=== PATIENT | female | born 1935 | race Caucasian/White ===

== ENCOUNTER 2017-03-15 05:31 | Day surgery (SDC) | payer MEDICARE, OTHER ==
[~2017-03-15] VITALS: Ht 162.6 cm; Wt 65.8 kg
[2017-03-15] VITALS (11 sets, daily range): BP systolic 114–163; BP diastolic 56–92; PULSE 59–76; RESP 14–25; O2SAT 92–97
[~2017-03-15 05:31] MED LIST: ALBU8.5H2 INHALATION; ALEN70SO3 PO; ALEN70TA2 PO; ASPI-973 PO; CALC1TAB23 PO; CARV6.252 PO; CHOL10008 PO; LEVO50TA6 PO; LIP40 PO; LOSA25TA21 PO; METF500T4 PO; MULT-1018 PO; SYMINH INHALATION; TORS20TA3 PO
[2017-03-15] MEDS ORDERED: fentaNYL-PF 50 mCg/mL 2 mL Inj ONE (05:32)
[2017-03-15] MEDS ORDERED: Furosemide 10 mg/mL 4 mL Inj ONE (05:32)
[2017-03-15] MEDS ORDERED: EPHEDrine/NS 5 mg/mL 5 mL Syringe ONE (05:32)
[2017-03-15] MEDS: Lactated Ringer's 1,000 ML IV SCH ×3 (05:35→12:10)
[2017-03-15] MEDS: CeFAZolin 2 Gm/50 mL D5W IV Premix IV SCH ×2 (06:00→07:45)
[2017-03-15] MEDS ORDERED: Dextrose 10% 250 ML IV SCH (06:00)
[2017-03-15] MEDS: Phenazopyridine 97.5 mg Tablet PO SCH ×2 (06:00→06:57)
[2017-03-15] MEDS ORDERED: Phenylephrine 10,000 mCg/mL Inj IVPUSH PRN (08:10)
[2017-03-15] MEDS ORDERED: MetoCLOpramide 5 mg/mL 2 mL Inj IVPUSH PRN ×2 (08:10→11:15)
[2017-03-15] MEDS ORDERED: Lactated Ringer's 500 ML IV PRN (08:10)
[2017-03-15] MEDS ORDERED: Lactated Ringer's 1,000 ML IV SCH (08:10)
[2017-03-15] MEDS ORDERED: Atropine 0.4 mg/mL Inj IVPUSH PRN (08:10)
[2017-03-15] MEDS ORDERED: HYDROmorphone 1 mg/mL Inj IVPUSH PRN (08:10)
[2017-03-15] MEDS ORDERED: Labetalol 5 mg/mL 20 mL Inj IV PRN (08:10)
[2017-03-15] MEDS ORDERED: Dexamethasone 4 mg/mL Inj IVPUSH PRN (08:10)
[2017-03-15] MEDS ORDERED: Ondansetron 2 mg/mL 2 mL Inj IVPUSH PRN (08:10)
[2017-03-15] MEDS ORDERED: EPHEDrine Sulfate 50 mg/mL Inj IVPUSH PRN (08:10)
--- NOTE | 2017-03-15 08:10 | PCM.HPANE ---
Patient Data Surgeon Admitting Provider: Attending Provider:Demetris Travis MD Primary Care Physician:Nicholas Davila MD Other Provider:[facility] Reason for Visit Cystocele, Vault Prolapse Ht/WT & BMI Height (Feet): 5 Height (Inches): 4.00 Weight (Kilograms): 65.5 Body Mass Index 24.00 Allergies Coded Allergies: Sulfa (Sulfonamide Antibiotics) (Verified Allergy, Severe, anaphylaxis, ) sulfamethoxazole (Verified Allergy, Severe, anaphylaxis, 03/13/17) trimethoprim (Verified Allergy, Severe, anaphylaxis, 03/13/17) erythromycin base (Verified Allergy, Intermediate, Increased heart rate and confusion, 03/13/17) Past Anesthesia History Anesthesia History: Positive for:: Anesthesia Reactions (delayed recovery from anesthesic), Denies:: Abnormal Airway, Difficult Intubation, Fam Anesthesia Reaction, Fam Malignant Hypertherm, Malignant Hyperthermia Diabetes History Hx Diabetes?: Yes Type of Diabetes: Type II Glycemic Control: Oral Medication Current Bedside Blood Glucose: 102 MRSA MRSA: No Medications Blood Thinner: Aspirin Last Dose Blood Thinner: Mar 09, 2017 Home Meds Incl Beta Devonte: Yes (Carvedilol 6.25mg) Date Beta Devonte Taken: Mar 15, 2017 Time Beta Devonte Taken: 0400 Reported Medications Multivitamin (Multi Vitamin Daily)1 Each Tablet1 Each PO DAILY 30 Days Ref 0 03/13/17 Torsemide 20 Mg [id number] Mg PO DAILY 30 Days Ref 0 03/13/17 Metformin 500 Mg [id number] Mg PO BID Ref 0 03/13/17 Losartan Potassium 25 Mg Ivozft21 Mg PO 03/13/17 Levothyroxine 50 Mcg Bqlkid55 Mcg PO DAILY Ref 0 03/13/17 Cholecalciferol (Vitamin D3) (Vitamin D3)1,000 Unit Tab.chew1,000 Unit PO 03/13/17 Carvedilol 6.25 Mg Tablet6.25 Mg PO BID Ref 0 03/13/17 Calcium Carbonate/Vitamin D3 (Os-Benjy 500+D3 Caplet)500 Mg-600 Tablet1 Each PO 03/13/17 Budesonide/Formoterol 160-4.5 mcg Inh (Symbicort 160-4.5 mcg Inh)120 Puff Inhaler2 Puff INHALATION BID #1 INHALER Ref 0 03/13/17 Atorvastatin (Lipitor)40 Mg Becnmj29 Mg PO DAILY Ref 0 03/13/17 Aspirin 81 Mg Jtyjpn95 Mg PO DAILY Ref 0 03/13/17 Alendronate Sodium (Fosamax)70 Mg Hmwzwj98 Mg PO WEEKLY 30 Days Ref 0 03/13/17 Alendronate Oral Soln 70 Mg/75 Ml Ctkzahyk80 Mg PO WEEKLY Ref 0 03/13/17 Albuterol HFA (Proair HFA)8.5 Gm Hfa.aer.ad2 Puffs INHALATION Q4H #1 INHALER 03/13/17 History History of ENT Problems?: Yes HEENT History: Positive for:: Dysphagia (chokes with water sometimes) Hearing Problem Denies:: Abnormal Airway Cataracts Difficult Intubation Glaucoma Sinus Problem TMJ Denture Type: Full- Upper Partial- Lower Teeth Condition: Missing Teeth Hx of Heart Problems?: Yes Cardiovascular History: Positive for:: Cardiac Surgery (stents [facility] & 2006 [facility]) Congestive Heart Failure Coronary Artery Disease Hypertension Irregular Heartbeat Denies:: AICD Abdominal Aortic Aneurism Atrial Fibrillation Chest Pain Edema Heart Murmur Pacemaker Peripheral Vascular Rheumatic Fever Thrombophlebitis Valvular Heart Disease Hx of Respiratory Problem?: Yes Respiratory History: Positive for:: COPD (Moderatly severe obstructive deficts with sever reduc cap. per MD note) Use of Inhalers / NEBS (Symbacort, Albuterol as needed) Denies:: Asthma Chest Surgery Cough Dyspnea Emphysema Hemoptysis Oxygen Administration Pneumonia Pulmonary Embolism Tuberculosis Use of C-PAP Machine Hx Neurologic Problems?: No Neurological History: Denies:: Alzheimer's Disease CVA Dementia Dizziness Headaches Multiple Sclerosis Parkinson's Disease Peripheral Neuropathy Seizures TIA Hx of GI Problems?: No Gastrointestinal History: Denies:: Cirrhosis Diverticulitis Gall Bladder Disease Gastroesphageal Reflux Gastrointestinal Bleeding Heartburn Hepatitis Hiatal Hernia Liver Disease Rectal Bleeding Hx of Problems?: Yes Genitourinary History: Denies:: HX of Hemodialysis Kidney Stones Urinary Tract Infection HX of Peritoneal Dialysis: No Female Hx: Denies:: Currently Endometriosis Pelvic Inflammatory Problems with Breasts? Skin History: Denies:: History Skin Disorders? Pressure Ulcers Hx Musculoskeletal Problems?: Yes Musculoskeletal History: Positive for:: Back Injury (Low back micro dicectomy 2010 ) Osteoarthritis Denies:: Degenerative Joint Fibromyalgia Joint Replacement Musculoskeletal Trauma Myasthenia Gravis Rheumatoid Arthritis Systemic Lupus Hx of Psycho/Social Problems?: No Psycho Social History: Denies:: Anxiety Bipolar Disorder Hx Depression Suicide Attempt Hx Surgeries?: Yes Other History: Positive for:: Thyroid Disease (Hypothyroidism) Denies:: Cancer Endocrine Disease History Blood Transfusions: Positive for:: Accept Blood Products? Denies:: Blood Transfuse Reaction Blood Transfusions Hx Diabetes: YesBedside Blood Glucose: 102 Hx Alcohol Use: NoHx Substance Use: No Stop/Bang S-Snoring: Do You Snore Loudly: No T-Tired: feel tired, fatigued: No O-Obsered: Observed not breath: No P-Blood Pressure: treated: Yes B- Body Mass Index > 35 kg/m2: No A- Age over 50: Yes N- Neck Large Circumference: No G- Gender Male: No JOSHUA Total Score: 2 Risk Assessment Category Category 1A: Patient has history of documented sleep apnea, and HAS NOT received any narcotic, sedative or anesthesia administration during this stay. Category 1B: Patient has history of documented sleep apnea, and HAS received any narcotic , sedative or anesthesia administration during this stay Category 2: Patient has SUSPECTED Obstructive Sleep Apnea, and HAS received any narcotic , sedative or anesthesia administration during this stay. Category 3: Patient has SUSPECTED Obstructive Sleep Apnea and HAS NOT received narcotic, sedative or anesthesia administration during this stay. Category 4: Outpatient in Procedural Areas with known sleep apnea or who screen positive for High Risk via the STOP/BANG questionnaire. Exam Exam Vital Signs Vital Signs Date Time Temp Pulse Resp B/P Pulse Ox O2 Delivery O2 Flow Rate FiO2 03/15/17 06:07 35.9 64 16 120/67 97 Room Air General Appearance: Alert, Oriented X3, Cooperative, No Acute Distress HEENT/AIRWAY: MP 2, Neck Movement (FROM), Mouth Opening (3 FBMO) Lungs: Clear to Auscultation, Normal Air Movement Heart: Exam Unremarkable, Regular Rate/Rhythm, No Murmurs/Rubs/Gallops Meds/Labs/Diagnostics Admission Meds Current Medications Lactated Ringer's (Lr) 1,000 ml @ 120 mls/hr Q8H20M IV Last administered on 05:35; Start 03/15/17 at 05:00; Stop 03/15/17 at 13:19 Phenazopyridine HCl (Azo Standard) 2 tab PREOP PO Last administered on 06:57; Start 03/15/17 at 06:00; Stop 03/15/17 at 17:00 Bedside Blood Glucose: 102 Plan Impression Patient chart reviewed, patient interviewed and anesthestic plan with risks, benefits, and alternatives discussed, and informed consent obtained. NPO per Anesth. Guidelines: Yes ASA Physical Status: ASA2 Mod Systemic Disease Anesthetic Plan: SAB (patient requested spinal ) Bene/Risks/Altern/Consents: Yes HP Complete Prior to Induction: Yes Derik Chang MD Mar 15, 2017 07:21
[2017-03-15] MEDS ORDERED: Gentamicin 40 mg/mL 2 mL Inj IRRIGATION ONE ×2 (08:32→10:39)
[2017-03-15] MEDS ORDERED: Lidocaine 1%-Epi 1:100,000 20 mL Inj INJ ONE (08:51)
[2017-03-15] MEDS ORDERED: Sodium Chloride Bacteriostatic 30 mL Inj INJ ONE (08:52)
[2017-03-15] MEDS ORDERED: Estrogens Conjugated 30 Gm Vaginal Cream VAGINAL ONE (09:57)
[2017-03-15 10:03] LABS: APPEARANCE,URINE CLEAR (CLEAR,HAZY); COLOR,URINE YELLOW (YELLOW); OCCULT BLOOD,URINE TRACE (NEGATIVE); UROBILINOGEN,URINE NORMAL (NORMAL)
[2017-03-15] MEDS ORDERED: diphenhydrAMINE 25 mg Capsule PO PRN (11:15)
[2017-03-15] MEDS ORDERED: Alum-Mag Hydrox-Simeth 30 mL Suspension PO PRN (11:15)
[2017-03-15] MEDS: fentaNYL-PF 50 mCg/mL 2 mL Inj IVPUSH PRN ×2 (11:31→11:45)
[2017-03-15] MEDS: Ondansetron 2 mg/mL 2 mL Inj IVPUSH PRN ×2 (12:23→17:31)
--- NOTE | 2017-03-15 12:54 | NUR ---
Admit Patient admitted to room via gurney and transferred to bed independently. After transfer, patient became nauseous but this did resolve quickly. She was A&OX3, reported pain as "it's doing good.", was 93% on room air, hernandez catheter was draining, SCDs in place. While in bed, patient became incontinent of diarrhea and was assisted to the bathroom to sit on the toilet. Linen and gown changed and patient bathed. Upon getting back to bed, patient became nauseated once more and did have an episode of emesis. Zofran administered and patient is now resting in bed comfortably, IV fluids infusing, and son at bedside. Peripad replaced as it was soiled and patient now reports full sensation after spinal anesthesia.
--- NOTE | 2017-03-15 14:02 | PCM.ANEP1 ---
Post Anesthesia PACU Phase 1 Assessment Vital Signs Vital Signs Date Time Temp Pulse Resp B/P Pulse Ox O2 Delivery O2 Flow Rate FiO2 03/15/17 12:04 36.0 64 18 163/91 93 Room Air 03/15/17 11:32 59 15 135/64 96 Nasal Cannula 2 03/15/17 11:25 64 14 114/92 96 Nasal Cannula 2 03/15/17 11:20 62 14 141/70 96 Nasal Cannula 2 03/15/17 11:15 18 97 03/15/17 11:10 59 17 147/61 96 Nasal Cannula 2 03/15/17 11:06 36.4 63 25 155/70 93 Room Air 03/15/17 06:07 35.9 64 16 120/67 97 Room Air Anesthetic Administered: GA Level of Alertness: Awake, talking MCDONALD's with Equal Strength: Yes Pain: No Nausea or Vomiting: No CV Function & Hydration Stable: Yes Airway Device: n/a Oxygen Delivery: Room Air Lungs: Clear to Auscultation, Normal Air Movement Dermatome Level: Full Sensation PACU Phase 2 Assessment Complications: No Follow up Care: N/A Patient Instructions Provided: N/A Derik Chang MD Mar 15, 2017 14:02
[2017-03-15] MEDS: Insulin Human REGular 300 Unit/3 mL Inj SUBQ SCH ×2 (14:30→20:30)
--- NOTE | 2017-03-15 14:47 | PCM.SURGOP ---
Surgical Operative Report Date of Service: Mar 15, 2017 Pre Operative Diagnosis POPQ Stage 2 Anterior, POPQ Stage 1-2 Posterior and POPQ Stage 2 Apical vaginal prolapse Post Operative Diagnosis POPQ Stage 3 Cystocele, POPQ Stage 2 Vault Prolapse and Rectocele Deficient pubocervical and pubovesical fascia Procedure: 1. Anterior Colporrhaphy with Xenform Graft Augmentation 2. High uterosacral ligament vaginal vault suspension, Enterocele repair 3. Posterior Colpoperineorrhapy 4. Cystoscopy, excision of right uterosacral ligament vault sutures Surgeon and Pharmacy Coordinator: Surgeon: Demetris Travis MD Assistants: Oralia Kim Indication for Procedure Corrine, who is a pleasant 81 year-old female, has the following assessment: 1. Urinary retention R33.9 (788.20): secondary to vaginal prolapse 2. Recurrent UTI N39.0 (599.0): 01/17/17 3. Cystocele, midline N81.11 (618.01): 4. Rectocele N81.6 (618.04): 5. Vaginal vault prolapse after hysterectomy N99.3 (618.5): 6. Vaginal atrophy N95.2 (627.3): 7. Pelvic muscle wasting N81.84 (618.83): 8. Hx of myocardial infarction I25.2 (412): 9. Hx of diabetes mellitus Z86.39 (V12.29): HbA1c 1 month ago 6.2% 10. History of COPD Z87.09 The patient is a candidate for surgical prolapse management in the form of anterior repair with possible biologic graft augmentation, high uterosacral ligament vaginal vault suspension, enterocele repair, and possible posterior repair. Reduction of her prolapse with 2 tampons seems to normalize her voiding function. She will continue with Keflex prophylaxis for now (to 2 wk postop). She does not plan on being sexually active in the future. The patient signed the consent form. She agreed with the risks, benefits, and alternatives to surgery. The risks included but not limited to recurrence or persistence of prolapse, recurrence of persistence of incontinence, development of voiding dysfunction, development of urinary urgency, urgency incontinence, frequency, and need for intermittent self-catheterization or prolonged indwelling catheterization, injury to other organs including bladder, bowel, nerves or blood vessels. Need for blood transfusion, need for temporary colostomy or urinary stenting. Development of vaginal scarring, dyspareunia, defecatory dysfunction, recurring pain, hematoma formation, urinary tract infection, cellulitis, necrotizing fascitis, and medical risks including myocardial infarction, stroke or VTE. She also understood the FDA warnings associated with the use of vaginal graft (dysparunia, vaginal erosion, erosion into bowel/bladder/urethra, requiring further surgery to correct these complications). The patient understood the risks and benefits and consented to surgery She has obtained cardiac/medical clearance. Findings: see dictation Procedure Details SURGICAL TECHNIQUE: The patient was brought to the operating room and was placed under general anesthesia. She was prepped and draped in the normal fashion for vaginal surgery with the legs in Yellofin stirrups. Also, her hips were allowed to deflex periodically during the case to avoid any pressure on the nerves and lower limb joints. She was given a dose of IV Ancef intraoperatively. She was given 200 mg oral pyridium prior to surgery. EUA revealed a POPQ stage 3 anterior, POPQ stage 2 apical/posterior vaginal Prolapse. 1. Anterior colporrhaphy with Xenform graft augmentation: Lidocaine 0.5% with 1 /[id number] epinephrine was infiltrated along the anterior vaginal wall mucosa. A midline vertical incision was made through the anterior vaginal wall. The vaginal wall was dissected off the underlying pubocervical and pubovesical fascia. The dissection was extended laterally beyond the ischiopubic rami. Bilateral paravaginal defects were noted. It was noted that the pubocervical and pubovesical fascial tissues were deficient. During the dissection along the apex, an enterocele sac was entered with sharp dissection. This was aided with the use of a gloved finger in the rectum to avoid penetrating the rectal mucosa. The rest of the anterior repair would be completed later in the procedure. 2. High uterosacral ligament vaginal vault suspension: Several mini laparotomy sponges were packed to retract the bowel upwards. A pair of Allis clamps were placed along the intraperitoneal portions of the vagina at the 5 and 7 o'clock positions. Tension along these Allis clamps allowed for identification of the uterosacral ligaments bilaterally. The ureters were palpated to avoid penetrating them. A pair of 0 Vicryl sutures were passed around the uterosacral ligaments of the level of the ischial spines bilaterally, totalling 4. No significant enterocele was noted. Cystoscopy was performed while tension was placed on the vault sutures. Cystoscopy revealed the presence of spillage of pyridium-stained urine at both ureteric orifices despite applying tension along the uterosacral ligament sutures. The remainder of the anterior repair was then completed as follows: The cystocele was plicated in 2 layers, the first layer with 2-0 Vicryl suture in interrupted fashion, the second layer with 2-0 Tycron suture in an interrupted fashion. A trapezoidal piece of Xenform graft was then incorporated atop the plicated area far laterally. The graft was secured far laterally into the obturator internus membrane. At the level of the bladder neck, an upside down triangular piece of graft was excised so that there was no excessive-support along the level of the bladder neck. Apically, the graft was passed through the proximal uterosacral ligament sutures. Minmal anterior vaginal mucosa was required to be excised. The vagina was then reapproximated using 3-0 Vicryl suture in a running locked fashion. The vault suspension sutures were tied and this elevated the apex of the vagina high up into the hollow of the sacrum. 3. Posterior colpoperineorrhaphy: Examination under anesthesia revealed that the posterior segment descended 1cm proximal to the hymen (POPQ Stage 2). Lidocaine 0.5% with 1:200,000 of epinephrine was infiltrated along the perineum and posterior vaginal wall mucosa. A small vertical incision was made through the perineum and a vertical midline incision was made in the posterior vagina with a scalpel. The vaginal mucosa was dissected off the underlying rectovaginal tissues. It was noted the rectovaginal fascial tissues were not thin and deficient. The rectocele was plicated in a one layer using 2-0 Vicryl suture in an interrupted fashion. A mild amount of excess posterior vaginal mucosa needed to be excised. The vagina was then reapproximated using 3-0 Vicryl suture in a running locked fashion. Perineum was reapproximated using 2-0 Vicryl suture in an interrupted fashion. The skin was reapproximated using 3-0 Vicryl suture in a subcuticular fashion. 4. Cystoscopy: We then proceeded with cystoscopy. The bladder was filled with 200 ml of D10 as the pyridium was faint. Cystoscopy revealed a normal appearing urethra and bladder. Both ureteric orifices were visualized. The left ureteric orifice was noted to be functional by the brisk spillage of urine. This was observed numerous times. However, despite giving IV Lasix, we could not demonstrate spillage at the right ureteric orifice. Therefore, the proximal anterior portion of the vagina was incised to obtain access to the right vault sutures. These sutures were clearly identified and cut with scissors. Repeat cystoscopy revealed brisk spillage at the right ureteric orifice on several successive instances. The bladder was then rinsed several times with sterile water. The 16F Carpenter catheter was then reinserted. The vagina was reapproximated with 3-0 vicryl suture. As the left high uterosacral ligament sutures were successfully supporting the apex, we opted not to reinsert the right sided ones. The estimated blood loss was approximately 150 mL. 1300 mL of IV Lactated Ringer's was given. All sponges and instruments were accounted for. The patient was taken to the recovery room in stable condition. Complications The right high uterosacral ligament vault sutures were excised to allow successful drainage at the right ureteric orifice Surgical Specimen Removed: No Specimen sent to Pathology: No Anesthetic Plan: SAB (patient requested spinal ) Grafts, Implants: Implants-See Implant Record Output, Estimated Blood Loss: 150 (ml EBL) Blood Administration during cagle: No Drains: None Catheters: Urethral 2 Way Carpenter Post Operative Plan overnight observation in bed as she requires a voiding trial in the am copies to: Skylar Sorensen; Nicholas Davila MD; Demteris Travis MD ; Oralia Kim William Andre Z MD Mar 15, 2017 14:46
[2017-03-15] MEDS: Acetaminophen IV 1,000 MG in IV Premix 1 EACH IV SCH ×2 (14:52→17:15)
--- NOTE | 2017-03-15 15:01 | PCM.SURGOP ---
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 She was prepped and draped in the normal fashion for vaginal surgery with the legs in Yellofin stirrups. Also, her hips were allowed to deflex periodically during the case to avoid any pressure on the nerves and lower limb joints. She was given a dose of IV Ancef intraoperatively. She was given 200 mg oral pyridium prior to surgery. EUA revealed a POPQ stage 3 anterior, POPQ stage 2 apical/posterior vaginal Prolapse. 1. Anterior colporrhaphy with Xenform graft augmentation: Lidocaine 0.5% with 1 /[id number] epinephrine was infiltrated along the anterior vaginal wall mucosa. A midline vertical incision was made through the anterior vaginal wall. The vaginal wall was dissected off the underlying pubocervical and pubovesical fascia. The dissection was extended laterally beyond the ischiopubic rami. Bilateral paravaginal defects were noted. It was noted that the pubocervical and pubovesical fascial tissues were deficient. During the dissection along the apex, an enterocele sac was entered with sharp dissection. This was aided with the use of a gloved finger in the rectum to avoid penetrating the rectal mucosa. The rest of the anterior repair would be completed later in the procedure. 2. High uterosacral ligament vaginal vault suspension: Several mini laparotomy sponges were packed to retract the bowel upwards. A pair of Allis clamps were placed along the intraperitoneal portions of the vagina at the 5 and 7 o'clock positions. Tension along these Allis clamps allowed for identification of the uterosacral ligaments bilaterally. The ureters were palpated to avoid penetrating them. A pair of 0 Vicryl sutures were passed around the uterosacral ligaments of the level of the ischial spines bilaterally, totalling 4. No significant enterocele was noted. Cystoscopy was performed while tension was placed on the vault sutures. Cystoscopy revealed the presence of spillage of pyridium-stained urine at both ureteric orifices despite applying tension along the uterosacral ligament sutures. The remainder of the anterior repair was then completed as follows: The cystocele was plicated in 2 layers, the first layer with 2-0 Vicryl suture in interrupted fashion, the second layer with 2-0 Tycron suture in an interrupted fashion. A trapezoidal piece of Xenform graft was then incorporated atop the plicated area far laterally. The graft was secured far laterally into the obturator internus membrane. At the level of the bladder neck, an upside down triangular piece of graft was excised so that there was no excessive-support along the level of the bladder neck. Apically, the graft was passed through the proximal uterosacral ligament sutures. Minmal anterior vaginal mucosa was required to be excised. The vagina was then reapproximated using 3-0 Vicryl suture in a running locked fashion. The vault suspension sutures were tied and this elevated the apex of the vagina high up into the hollow of the sacrum. 3. Posterior colpoperineorrhaphy: Examination under anesthesia revealed that the posterior segment descended 1cm proximal to the hymen (POPQ Stage 2). Lidocaine 0.5% with 1:200,000 of epinephrine was infiltrated along the perineum and posterior vaginal wall mucosa. A small vertical incision was made through the perineum and a vertical midline incision was made in the posterior vagina with a scalpel. The vaginal mucosa was dissected off the underlying rectovaginal tissues. It was noted the rectovaginal fascial tissues were not thin and deficient. The rectocele was plicated in a one layer using 2-0 Vicryl suture in an interrupted fashion. A mild amount of excess posterior vaginal mucosa needed to be excised. The vagina was then reapproximated using 3-0 Vicryl suture in a running locked fashion. Perineum was reapproximated using 2-0 Vicryl suture in an interrupted fashion. The skin was reapproximated using 3-0 Vicryl suture in a subcuticular fashion. 4. Cystoscopy: We then proceeded with cystoscopy. The bladder was filled with 200 ml of D10 as the pyridium was faint. Cystoscopy revealed a normal appearing urethra and bladder. Both ureteric orifices were visualized. The left ureteric orifice was noted to be functional by the brisk spillage of urine. This was observed numerous times. However, despite giving IV Lasix, we could not demonstrate spillage at the right ureteric orifice. Therefore, the proximal anterior portion of the vagina was incised to obtain access to the right vault sutures. These sutures were clearly identified and cut with scissors. Repeat cystoscopy revealed brisk spillage at the right ureteric orifice on several successive instances. The bladder was then rinsed several times with sterile water. The 16F Carpenter catheter was then reinserted. The vagina was reapproximated with 3-0 vicryl suture. As the left high uterosacral ligament sutures were successfully supporting the apex, we opted not to reinsert the right sided ones. The estimated blood loss was approximately 150 mL. 1300 mL of IV Lactated Ringer's was given. All sponges and instruments were accounted for. The patient was taken to the recovery room in stable condition. Surgeon and Operating Room Aide: Surgeon: Demetris Travis MD Assistants: Oralia Kim Indication for Procedure Corrine, who is a pleasant 81 year-old female, has the following assessment: 1. Urinary retention R33.9 (788.20): secondary to vaginal prolapse 2. Recurrent UTI N39.0 (599.0): 6 3. Cystocele, midline N81.11 (618.01): 4. Rectocele N81.6 (618.04): 5. Vaginal vault prolapse after hysterectomy N99.3 (618.5): 6. Vaginal atrophy N95.2 (627.3): 7. Pelvic muscle wasting N81.84 (618.83): 8. Hx of myocardial infarction I25.2 (412): 9. Hx of diabetes mellitus Z86.39 (V12.29): HbA1c 1 month ago 6.2% 10. History of COPD Z87.09 The patient is a candidate for surgical prolapse management in the form of anterior repair with possible biologic graft augmentation, high uterosacral ligament vaginal vault suspension, enterocele repair, and possible posterior repair. Reduction of her prolapse with 2 tampons seems to normalize her voiding function. She will continue with Keflex prophylaxis for now (to 2 wk postop). She does not plan on being sexually active in the future. The patient signed the consent form. She agreed with the risks, benefits, and alternatives to surgery. The risks included but not limited to recurrence or persistence of prolapse, recurrence of persistence of incontinence, development of voiding dysfunction, development of urinary urgency, urgency incontinence, frequency, and need for intermittent self-catheterization or prolonged indwelling catheterization, injury to other organs including bladder, bowel, nerves or blood vessels. Need for blood transfusion, need for temporary colostomy or urinary stenting. Development of vaginal scarring, dyspareunia, defecatory dysfunction, recurring pain, hematoma formation, urinary tract infection, cellulitis, necrotizing fascitis, and medical risks including myocardial infarction, stroke or VTE. She also understood the FDA warnings associated with the use of vaginal graft (dysparunia, vaginal erosion, erosion into bowel/bladder/urethra, requiring further surgery to correct these complications). The patient understood the risks and benefits and consented to surgery She has obtained cardiac/medical clearance. Findings: see dictation Procedure Details SURGICAL TECHNIQUE: The patient was brought to the operating room and was placed under general anesthesia. She was prepped and draped in the normal fashion for vaginal surgery with the legs in Yellofin stirrups. Also, her hips were allowed to deflex periodically during the case to avoid any pressure on the nerves and lower limb joints. She was given a dose of IV Ancef intraoperatively. She was given 200 mg oral pyridium prior to surgery. EUA revealed a POPQ stage 3 anterior, POPQ stage 2 apical/posterior vaginal Prolapse. 1. Anterior colporrhaphy with Xenform graft augmentation: Lidocaine 0.5% with 1 /[id number] epinephrine was infiltrated along the anterior vaginal wall mucosa. A midline vertical incision was made through the anterior vaginal wall. The vaginal wall was dissected off the underlying pubocervical and pubovesical fascia. The dissection was extended laterally beyond the ischiopubic rami. Bilateral paravaginal defects were noted. It was noted that the pubocervical and pubovesical fascial tissues were deficient. During the dissection along the apex, an enterocele sac was entered with sharp dissection. This was aided with the use of a gloved finger in the rectum to avoid penetrating the rectal mucosa. The rest of the anterior repair would be completed later in the procedure. 2. High uterosacral ligament vaginal vault suspension: Several mini laparotomy sponges were packed to retract the bowel upwards. A pair of Allis clamps were placed along the intraperitoneal portions of the vagina at the 5 and 7 o'clock positions. Tension along these Allis clamps allowed for identification of the uterosacral ligaments bilaterally. The ureters were palpated to avoid penetrating them. A pair of 0 Vicryl sutures were passed around the uterosacral ligaments of the level of the ischial spines bilaterally, totalling 4. No significant enterocele was noted. Cystoscopy was performed while tension was placed on the vault sutures. Cystoscopy revealed the presence of spillage of pyridium-stained urine at both ureteric orifices despite applying tension along the uterosacral ligament sutures. The remainder of the anterior repair was then completed as follows: The cystocele was plicated in 2 layers, the first layer with 2-0 Vicryl suture in interrupted fashion, the second layer with 2-0 Tycron suture in an interrupted fashion. A trapezoidal piece of Xenform graft was then incorporated atop the plicated area far laterally. The graft was secured far laterally into the obturator internus membrane. At the level of the bladder neck, an upside down triangular piece of graft was excised so that there was no excessive-support along the level of the bladder neck. Apically, the graft was passed through the proximal uterosacral ligament sutures. Minmal anterior vaginal mucosa was required to be excised. The vagina was then reapproximated using 3-0 Vicryl suture in a running locked fashion. The vault suspension sutures were tied and this elevated the apex of the vagina high up into the hollow of the sacrum. 3. Posterior colpoperineorrhaphy: Examination under anesthesia revealed that the posterior segment descended 1cm proximal to the hymen (POPQ Stage 2). Lidocaine 0.5% with 1:200,000 of epinephrine was infiltrated along the perineum and posterior vaginal wall mucosa. A small vertical incision was made through the perineum and a vertical midline incision was made in the posterior vagina with a scalpel. The vaginal mucosa was dissected off the underlying rectovaginal tissues. It was noted the rectovaginal fascial tissues were not thin and deficient. The rectocele was plicated in a one layer using 2-0 Vicryl suture in an interrupted fashion. A mild amount of excess posterior vaginal mucosa needed to be excised. The vagina was then reapproximated using 3-0 Vicryl suture in a running locked fashion. Perineum was reapproximated using 2-0 Vicryl suture in an interrupted fashion. The skin was reapproximated using 3-0 Vicryl suture in a subcuticular fashion. 4. Cystoscopy: We then proceeded with cystoscopy. The bladder was filled with 200 ml of D10 as the pyridium was faint. Cystoscopy revealed a normal appearing urethra and bladder. Both ureteric orifices were visualized. The left ureteric orifice was noted to be functional by the brisk spillage of urine. This was observed numerous times. However, despite giving IV Lasix, we could not demonstrate spillage at the right ureteric orifice. Therefore, the proximal anterior portion of the vagina was incised to obtain access to the right vault sutures. These sutures were clearly identified and cut with scissors. Repeat cystoscopy revealed brisk spillage at the right ureteric orifice on several successive instances. The bladder was then rinsed several times with sterile water. The 16F Carpenter catheter was then reinserted. The vagina was reapproximated with 3-0 vicryl suture. As the left high uterosacral ligament sutures were successfully supporting the apex, we opted not to reinsert the right sided ones. The estimated blood loss was approximately 150 mL. 1300 mL of IV Lactated Ringer's was given. All sponges and instruments were accounted for. The patient was taken to the recovery room in stable condition. Complications The right high uterosacral ligament vault sutures were excised to allow successful drainage at the right ureteric orifice Surgical Specimen Removed: No Specimen sent to Pathology: No Anesthetic Plan: SAB (patient requested spinal ) Grafts, Implants: Implants-See Implant Record Output, Estimated Blood Loss: 150 (ml EBL) Blood Administration during cagle: No Drains: None Catheters: Urethral 2 Way Carpenter Post Operative Plan overnight observation in bed as she requires a voiding trial in the am copies to: Skylar Sorensen; Nicholas Davila MD; Demetris Travis MD ; Oralia Kim William Andre Z MD Mar 15, 2017 15:01
[2017-03-15] MEDS ORDERED: CEPH-511 PO (15:08)
[2017-03-15] MEDS: Albuterol 2.5 mg/3 mL Inhalation Solution NEB SCH ×2 (16:00→20:00)
[2017-03-15] MEDS ORDERED: CHOL10008 PO (18:15)
[2017-03-15] MEDS ORDERED: [UNRECOGNIZED DRUG - CODE] PO (18:15)
[2017-03-15] MEDS: Fluticasone-Salmeterol 500-50 Inhaler INHALATION SCH (20:30)
[2017-03-15] MEDS: HYDROcodone-APAP 5-325 mg Tablet PO PRN (21:05)
[2017-03-16] MEDS: Lactated Ringer's 1,000 ML IV SCH ×2 (00:34→13:54)
[2017-03-16 00:49] VITALS: BP 102/59; PULSE 63; RESP 16; O2SAT 93
[2017-03-16] MEDS: Insulin Human REGular 300 Unit/3 mL Inj SUBQ SCH ×3 (02:21→14:30)
--- NOTE | 2017-03-16 02:24 | NUR ---
Pain management Denies pain at this time, educated patient on pain management and benefits of keeping pain levels tolerable. Instructed to report when pain levels begin to climb. Care continues.
[2017-03-16] MEDS: Ondansetron 2 mg/mL 2 mL Inj IVPUSH PRN (03:48)
[2017-03-16] MEDS: Albuterol 2.5 mg/3 mL Inhalation Solution NEB SCH ×3 (04:00→08:00)
[2017-03-16 04:51] VITALS: BP 121/53; PULSE 67; RESP 18; O2SAT 92
[2017-03-16 05:42] LABS: BASOPHILS % (AUTO) 0.2 % (0-3); EOSINOPHILS % (AUTO) 1.2 % (0-5); MONOCYTES % (AUTO) 11.5 % (4-12); Mean Corpuscular Hemoglobin 31.6 pg (27.0-35.0); Mean Corpuscular Volume 93.6 fL (81-100); NEUTROPHILS % (AUTO) 76.5 % (40-74); Platelet Count 241 bil/L (150-400)
[2017-03-16] MEDS: HYDROcodone-APAP 5-325 mg Tablet PO PRN ×2 (07:23→14:03)
[2017-03-16 07:52] VITALS: BP 119/52; RESP 20; O2SAT 95
[2017-03-16 08:17] VITALS: PULSE 68; RESP 16; O2SAT 92
[2017-03-16] MEDS ORDERED: Heparin 5,000 Unit/mL Inj SUBQ SCH (08:30)
[2017-03-16] MEDS ORDERED: Senna-Docusate 8.6-50 mg Tablet PO SCH (08:30)
[2017-03-16] MEDS: Fluticasone-Salmeterol 500-50 Inhaler INHALATION SCH (08:30)
--- NOTE | 2017-03-16 09:02 | NUR ---
Torsemide Pt refused AM dose of PO Torsemide due to it having a delayed effect with her and has concerns about having to urinate in a rest area and has a [address] Travis made aware and ok for pt to not take this morning.
[2017-03-16] MEDS ORDERED: Albuterol 2.5 mg/3 mL Inhalation Solution NEB PRN (10:57)
--- NOTE | 2017-03-16 13:39 | PCM.DIGYN ---
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 Travis (also f/u in 1 wk with his MA if home with hernandez cath)) Call your provider for: Fever, Chills, Shortness of breath, Vomitting, Heavy vaginal bleeding, Wound redness, Increasing pain Demetris Travis MD Mar 16, 2017 13:39
--- NOTE | 2017-03-16 13:42 | PCM.PNSURG ---
Subjective Date of Service: Mar 16, 2017 Date of Service: Mar 16, 2017 Visit Information: Reason for Visit Cystocele, Vault Prolapse Surgery/Surgery Date LYSTOCELE/ANTERIOR REPAIR 03/15/17 Post-Op Day # 1 Subjective: AVSS doing well ambulating well eating well, sugars stable OR explained pain control good Postop General: No Complaints Gastrointestinal: Good Appetite Pain Management: PO Postop Activity: Ambulating Independently Objective Vital Sign- Last 8 Hours Date Time Temp Pulse Resp B/P Pulse Ox O2 Delivery O2 Flow Rate FiO2 03/16/17 08:17 68 16 92 Room Air 03/16/17 07:52 36.7 20 119/52 95 Room Air Intake and Output- Last 8 Hour 03/16/17 Cumulative From/Thru 07:00 03/10/17 09:35 - 03/16/17 06:22 Intake Total 278 ml 2896 ml Output Total 850 ml 1300 ml Balance -572 ml 1596 ml Intake Oral 278 ml 678 ml IV Total 2218 ml Output Urine Total 850 ml 1000 ml Estimated Blood Loss 300 ml General: Alert, Oriented X3, Cooperative Lungs: Clear to Auscultation Abdomen: Benign Result Diagram: 03/16/17 0440 03/16/17 0440 Assessment & Plan Impression stable for discharge Problems: Plan d/c home later today once stable copies to: Skylar Sorensen; Nicholas Davila MD; Demetris Travis MD, William Andre Z MD Mar 16, 2017 13:42
--- NOTE | 2017-03-16 15:59 | NUR ---
Hernandez Cath Pt unable to void more than 100mls; per orders hernandez cath placed and capped for discharge. 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
--- NOTE | 2017-03-16 16:01 | NUR ---
Discharge Pt to discharge to home with hernandez cath in place, A&Ox3, up ind in room to dress with steady gait. Pt given written and verbal discharge instructions and states understanding to all instructions, no heavy lifting of 10lbs for 6 weeks, to f/u with Dr Travis's MA in 1 week since pt was discharging with hernandez cath in place, instructions to take all medications as prescribed and Rx given to patient to have medications filled to which patient states understanding. Pt teaching and return demonstration done for cath care. Pt to discharge to home with her son and all personal belongings, wheeled off floor with pt aide. Care notes Cystocele given to pt.
== END 2017-03-16 16:12 | disposition home or self-care (01) ==
LOC: SAS 05:31 → OSC 11:55 → SAS 03-16 16:12
PROVIDERS: ATTEND Obstetrics & Gynecology
DX: N99.3 Prolapse of vaginal vault after hysterectomy (principal); N81.11 Cystocele, midline; N81.6 Rectocele; N81.84 Pelvic muscle wasting; R33.9 Retention of urine, unspecified; N95.2 Postmenopausal atrophic vaginitis; G89.18 Other acute postprocedural pain; I10 Essential (primary) hypertension; E78.2 Mixed hyperlipidemia; I25.10 Atherosclerotic heart disease of native coronary artery without angina pectoris; E03.9 Hypothyroidism, unspecified; E11.9 Type 2 diabetes mellitus without complications; J44.9 Chronic obstructive pulmonary disease, unspecified; M19.90 Unspecified osteoarthritis, unspecified site; I50.32 Chronic diastolic (congestive) heart failure; Z86.010 Personal history of colon polyps; Z87.891 Personal history of nicotine dependence; Z90.710 Acquired absence of both cervix and uterus; Z79.84 Long term (current) use of oral hypoglycemic drugs; Z95.5 Presence of coronary angioplasty implant and graft; Z87.440 Personal history of urinary (tract) infections
CPT/HCPCS: 36415; 57265; 57267; 57283; 80048; 81000; 85025; 87086; 94640; 94799; 96372; 96374; C1763; J0131; J0690; J1580; J1644; J1815; J1940; J2250; J2405; J3010; J7120